=== PATIENT | male | born 1960 | race Caucasian/White ===

== ENCOUNTER 2017-03-17 11:03 | Emergency (ER) | payer BC ==
[2017-03-17 11:15] VITALS: BP 138/78
[2017-03-17] MEDS ORDERED: Diphtheria,Pertussis(Acell),Tetanus Vaccine 0.5 ML Syringe IM ONE (11:27)
[2017-03-17] MEDS ORDERED: Lidocaine 1% 20 ML MDV ONE (11:30)
[2017-03-17] MEDS ORDERED: Bacitracin/Neomycin/Polymyxin B Oint 0.9 GM U/D Packet ONE (11:31)
[2017-03-17] MEDS ORDERED: Bacitracin/Neomycin/Polymyxin B Oint 0.9 GM U/D Packet TOP ONE (11:43)
[2017-03-17] MEDS ORDERED: Lidocaine 1% 20 ML MDV INJECT ONE (11:43)
--- NOTE | 2017-03-17 12:20 | EDM.PDOC ---
ED HPI GENERAL MEDICAL PROBLEM - General Chief Complaint: Laceration Stated Complaint: LT THUMB Time Seen by Provider: 03/17/17 11:40 Source of Information: Reports: Patient History Limitations: Reports: No Limitations - History of Present Illness INITIAL COMMENTS - FREE TEXT/NARRATIVE: Ravi is a 56 yo male who presents to the ER with concerns of a laceration to his left thumb. States he was trying to cut a zip tie this morning and it slipped catching the tip of his left thumb. Unsure of last Tetanus. States it has been bleeding some. Denies any loss of ROM. Location: Reports: Upper Extremity, Left Left 1-Thumb Pain Score (Numeric/FACES): 1 - Related Data Allergies Allergy/AdvReac Type Severity Reaction Status Date / Time iodine Allergy Rash Verified 03/17/17 11:15 Home Meds: Home Meds Acyclovir 400 mg PO DAILY 03/17/17 [History] Hydrocodone/Acetaminophen [Hydrocodon-Acetaminophen 5-325] 1 - 2 tab PO Q4H PRN 03/17/17 [History] Methocarbamol 500 mg PO Q6H PRN 03/17/17 [History] metFORMIN [Glucophage XR] 500 mg PO BID 03/17/17 [History] traMADol [Ultram] 50 mg PO Q6H PRN 03/17/17 [History] Past Medical History Endocrine/Metabolic History: Reports: Diabetes, Type II - Past Surgical History GI Surgical History: Reports: Bariatric Procedure Musculoskeletal Surgical History: Reports: Hip Replacement, Shoulder Surgery, Other (See Below) Other Musculoskeletal Surgeries/Procedures:: rotator cuff, left achilles, torn miniscus, bilat feet Social & Family History - Family History Family Medical History: Noncontributory - Tobacco Use Smoking Status *Q: Never Smoker - Caffeine Use Caffeine Use: Reports: Soda - Recreational Drug Use Recreational Drug Use: No ED ROS GENERAL - Review of Systems Review Of Systems: ROS reveals no pertinent complaints other than HPI. ED EXAM, SKIN/RASH Exam: See Below General Appearance: Alert, No Apparent Distress Skin: Wound/Incision (3cm linear laceration to left thumb along nail bed) ED SKIN PROCEDURES - Laceration/Wound Repair Left Finger Lac/wound length in cm: 3 Appearance: subcutaneous Distal NVT: neuro & vascular intact, no tendon injury Anesthetic Type: local Local anesthesia - Lidocaine (Xylocaine): 1% plain Local anesthetic volume: 2cc Skin prep: chlorhexidine (hibiciens) Exploration/Debridement/Repair: wound explored, in a bloodless field, explored to base, no foreign material found Closed with: sutures Suture size: other (5-0) # of sutures: 6 Suture type: prolene, interrupted Sterile dressing applied: nurse Tetanus status addressed: Yes Complications: No Course - Vital Signs Last Recorded V/S: Last Vital Signs Temp 96.8 F 03/17/17 11:11 Pulse 63 03/17/17 11:11 Resp 18 03/17/17 11:11 BP 138/78 03/17/17 11:11 Pulse Ox 98 03/17/17 11:11 - Orders/Labs/Meds Orders: Active Orders 24 hr Category Date Time Status Vaccines to be Administered [RC] PER UNIT ROUTINE Care 03/17/17 11:28 Active Meds: Medications Discontinued Medications Generic Name Dose Route Start Last Admin Trade Name Freq PRN Reason Stop Dose Admin Diphtheria/Tetanus/Acell Pertussis 0.5 ml 03/17/17 11:27 03/17/17 11:41 Adacel IM 03/17/17 11:28 0.5 ml .ONCE ONE Administration Lidocaine HCl Confirm 03/17/17 11:30 03/17/17 12:04 Xylocaine 1% Administered 03/17/17 11:31 Not Given Dose 20 ml .ROUTE .STK-MED ONE Lidocaine HCl 20 ml 03/17/17 11:43 03/17/17 12:04 Xylocaine 1% INJECT 03/17/17 11:44 20 ml ONETIME ONE Administration Neomycin/Polymyxin/Bacitracin Confirm 03/17/17 11:31 03/17/17 12:04 Triple Antibiotic Oint Administered 03/17/17 11:32 Not Given Dose 1 each .ROUTE .STK-MED ONE Neomycin/Polymyxin/Bacitracin 1 each 03/17/17 11:43 03/17/17 12:04 Triple Antibiotic Oint TOP 03/17/17 11:44 1 each ONETIME ONE Administration Departure - Departure Time of Disposition: 12:18 Disposition: Home, Self-Care 01 Condition: good Clinical Impression: Laceration of thumb, left Qualifiers: Encounter type: initial encounter Qualified Code(s): S61.012A - Laceration without foreign body of left thumb without damage to nail, initial encounter - Discharge Information Instructions: Laceration Care, Adult, [id number] Forms: ED Department Discharge Additional Instructions: 1) RECOMMEND SUTURES OUT IN 7 DAYS 2) KEEP WOUND CLEAN AND DRY FOR NEXT 48 HOURS. 3) WATCH FOR SIGNS OF INFECTION. IF ANY INCREASE IN REDNESS, SWELLING, DRAINAGE... RECOMMEND FOLLOW UP SOONER 4) TETANUS UPDATED TODAY. - Problem List & Annotations (1) Laceration of thumb, left SNOMED Code(s): 423884328, 156576050 Code(s): S61.012A - LACERATION W/O FB OF LEFT THUMB W/O DAMAGE TO NAIL, INIT Status: Acute Qualifiers: Encounter type: initial encounter Qualified Code(s): S61.012A - Laceration without foreign body of left thumb without damage to nail, initial encounter - Problem List Review Problem List Initiated/Reviewed/Updated: Yes - My Orders Last 24 Hours: My Active Orders 03/17/17 11:28 Vaccines to be Administered [RC] PER UNIT ROUTINE - Assessment/Plan Last 24 Hours: My Active Orders 03/17/17 11:28 Vaccines to be Administered [RC] PER UNIT ROUTINE Plan: SEE ADDITIONAL INSTRUCTIONS.
== END 2017-03-17 12:20 | disposition home or self-care (01) ==
LOC: CC.ED 11:03
DX: S61.012A Laceration without foreign body of left thumb without damage to nail, initial encounter (principal); E11.9 Type 2 diabetes mellitus without complications; W26.8XXA Contact with other sharp object(s), not elsewhere classified, initial encounter
CPT/HCPCS: 12002; 90471; 90715; 96372; 99283